=== PATIENT | female | born 1940 | race Caucasian/White ===

== ENCOUNTER 2016-08-31 17:04 | Outpatient (CLI) | payer MEDICARE ==
[2016-08-31 17:44] LABS: ALT (SGPT) 20 U/L (8-55); AST (SGOT) 15 U/L (5-34); Albumin 3.8 g/dL (3.4-4.8); Alkaline Phosphatase 83 U/L (40-150); Anion Gap 16 mmol/L (10-20); BUN (Urea Nitrogen) 44 mg/dL (9.8-20.1); Bilirubin, Total 0.4 mg/dL (0.2-1.2); Calc. Creatinine Clearance 0 mL/min (70-130); Calcium 8.8 mg/dL (7.8-10.44); Carbon Dioxide 20 mmol/L (23-31); Chloride 102 mmol/L (98-107); Estimated GFR-MDRD 23; Globulin 2.2 g/dL (2.4-3.5); Glucose 439 mg/dL (83-110); Potassium 5.1 mmol/L (3.5-5.1); Sodium 133 mmol/L (136-145)
== END 2016-08-31 17:05 | disposition home or self-care (01) ==
LOC: NAV LAB 17:04
PROVIDERS: ATTEND Urology
DX: N28.89 Other specified disorders of kidney and ureter (principal)
CPT/HCPCS: 36415; 80053

== ENCOUNTER 2016-09-16 09:01 | Outpatient (CLI) | payer MEDICARE ==
[2016-09-16 10:00] LABS: #Basophils 0.1 thou/uL (0.0-0.2); #Eosinphils 0.1 thou/uL (0.0-0.7); #Lymphocytes 0.9 thou/uL (1.20-3.40); #Monocytes 0.4 thou/uL (0.11-0.59); %Basophils 1.1 % (0.0-1.0); %Eosinophils 1.6 % (0.0-10.0); %Lymphocytes 16.5 % (21.0-51.0); %Monocytes 7.1 % (0.0-10.0); %Neutrophils 73.6 % (42.0-75.0); Hemoglobin 8.5 g/dL (12.0-16.0); Mean Corpuscular HGB CONC 31.7 g/dL (32.0-36.0); Mean Corpuscular Hemoglobin 28.6 pg (27.0-31.0); Mean Corpuscular Volume 90.1 fl (81.0-99.0); Platelet Count 177 thou/uL (130-400); RBC Distribution Width 12.8 % (11.5-14.5); Red Blood Cell (RBC) Count 2.96 mill/uL (4.20-5.40); White Blood Cell (WBC) Count 5.4 thou/uL (4.8-10.8)
[2016-09-16 17:28] LABS: Hemoglobin A1c 7.9 % (4.0-6.0)
[2016-09-16 17:45] LABS: ALT (SGPT) 17 U/L (8-55); AST (SGOT) 19 U/L (5-34); Albumin 3.7 g/dL (3.4-4.8); Alkaline Phosphatase 59 U/L (40-150); Anion Gap 13 mmol/L (10-20); BUN (Urea Nitrogen) 32 mg/dL (9.8-20.1); Bilirubin, Total 0.6 mg/dL (0.2-1.2); Calc. Creatinine Clearance 0 mL/min (70-130); Calcium 8.6 mg/dL (7.8-10.44); Carbon Dioxide 23 mmol/L (23-31); Cardiac Risk 2.5 (Less than 4.5); Chloride 108 mmol/L (98-107); Cholesterol 147 mg/dl (< 200 Desired); Estimated GFR-MDRD 25; Globulin 1.8 g/dL (2.4-3.5); Glucose 62 mg/dL (83-110); HDL Cholesterol 59 mg/dL (>60 Neg Risk); LDL Cholesterol, Calculated 81 mg/dL; Potassium 5.3 mmol/L (3.5-5.1); Protein, Total 5.5 g/dL (6.0-8.3); Sodium 139 mmol/L (136-145); Triglycerides 37 mg/dL (Less than 150)
[2016-09-17 10:07] LABS: Follow-up Chemistry Comp? YES; Follow-up Result - Chemistry REPORT FAXED
== END 2016-09-16 09:02 | disposition home or self-care (01) ==
LOC: NAV LAB 09:01
PROVIDERS: ATTEND Physician Assistant Medical
DX: E11.9 Type 2 diabetes mellitus without complications (principal); I48.0 Paroxysmal atrial fibrillation; E78.2 Mixed hyperlipidemia
CPT/HCPCS: 36415; 80053; 80061; 83036; 85025

== ENCOUNTER 2017-02-22 11:44 | Outpatient (CLI) | payer MEDICARE ==
--- NOTE | 2017-02-22 13:38 | ULT ---
BILATERAL RENAL ULTRASOUND: Date: 02/22/17 COMPARISON: None. HISTORY: Renal mass. TECHNIQUE: Multiplanar Schaefer scale and color Doppler images are obtained in a renal ultrasound. FINDINGS: Small anechoic cysts are seen in both kidneys. The largest is seen in the right kidney measuring 1.4 cm in greatest dimension. The kidneys demonstrate increased cortical echogenicity without hydronephro sis or calculi and measure 8.5 and 8.9 cm in length on the right and left, respectively. No solid terrance al mass is identified. Limited visualization of the urinary bladder is unremarkable. IMPRESSION: 1. Bilateral renal cysts. 2. Increased echogenicity of the kidneys may be secondary to chronic medical renal disease. POS: REGINE
== END 2017-02-22 11:45 | disposition home or self-care (01) ==
LOC: NAV RAD 11:44
PROVIDERS: ATTEND Internal Medicine Nephrology
DX: N28.89 Other specified disorders of kidney and ureter (principal); N28.1 Cyst of kidney, acquired
CPT/HCPCS: 76770

== ENCOUNTER 2017-05-12 12:19 | Outpatient (CLI) | payer MEDICARE ==
--- NOTE | 2017-05-12 15:26 | RAD ---
LEFT HIP 2 VIEWS: HISTORY: Left hip pain. FINDINGS: There is mild joint space narrowing and moderate degree of osteophytosis. Femoral head contours main tained. No acute fracture or dislocation. Calcification overlies the arterial structures. IMPRESSION: 1. Mild osteoarthritic left hip. 2. Atherosclerosis. POS: REGINE
--- NOTE | 2017-05-12 15:27 | RAD ---
LUMBAR SPINE 3 VIEWS: HISTORY: Back pain. FINDINGS: There are 5 lumbar-type vertebrae. Pedicles are intact. Vertebral body height and alignment are juliano ntained. Osteophytosis is present throughout the vertebral bodies and facets. No acute fracture or dislocation. Prominent calcification overlies the arterial structures. Sacral alae are predominantl y obscured by bowel content. IMPRESSION: 1. Lumbar spondylosis. No evidence of compression fracture. 2. Atherosclerosis. POS: REGINE
== END 2017-05-12 12:20 | disposition home or self-care (01) ==
LOC: NAV RAD 12:19
PROVIDERS: ATTEND Internal Medicine Nephrology
DX: M16.12 Unilateral primary osteoarthritis, left hip (principal); M47.896 Other spondylosis, lumbar region; I70.0 Atherosclerosis of aorta
CPT/HCPCS: 72100

== ENCOUNTER 2021-07-03 12:04 | Emergency (ER) | payer MEDICARE ==
[2021-07-03] MEDS ORDERED: Sodium Chloride 0.9% 500 ML ONE (12:39)
[2021-07-03 13:17] LABS: #Lymphocytes 0.7 thou/uL (1.20-3.40); #Monocytes 0.5 thou/uL (0.11-0.59); #Neutrophils 2.4 thou/uL (1.40-6.50); %Basophils 0.7 % (0.0-1.0); %Eosinophils 0.9 % (0.0-10.0); %Lymphocytes 19.8 % (21.0-51.0); %Monocytes 12.6 % (0.0-10.0); Hemoglobin 9.9 g/dL (12.0-16.0); Mean Corpuscular HGB CONC 29.8 g/dL (32.0-36.0); Mean Corpuscular Hemoglobin 30.1 pg (27.0-31.0); Mean Platelet Volume 8.1 fL (7.4-10.4); Platelet Count 152 thou/uL (130-400); RBC Distribution Width 13.3 % (11.5-14.5); Red Blood Cell (RBC) Count 3.31 mill/uL (4.20-5.40); White Blood Cell (WBC) Count 3.7 thou/uL (4.8-10.8)
[2021-07-03 13:32] LABS: ALT (SGPT) 9 U/L (8-55); AST (SGOT) 15 U/L (5-34); Albumin 3.8 g/dL (3.4-4.8); Alkaline Phosphatase 33 U/L (40-110); Anion Gap 17 mmol/L (10-20); BUN (Urea Nitrogen) 29 mg/dL (9.8-20.1); Bilirubin, Total 0.8 mg/dL (0.2-1.2); Calc. Creatinine Clearance 0 mL/min (70-130); Calcium 9.1 mg/dL (7.8-10.44); Carbon Dioxide 29 mmol/L (23-31); Chloride 100 mmol/L (98-107); Globulin 2.1 g/dL (2.4-3.5); Glucose 152 mg/dL (83-110); Magnesium 1.5 mg/dL (1.6-2.6); Potassium 3.1 mmol/L (3.5-5.1); Protein, Total 5.9 g/dL (5.8-8.1); Sodium 143 mmol/L (136-145)
[2021-07-03 13:43] LABS: CKMB 1.2 ng/mL (0-6.6)
[2021-07-03] MEDS ORDERED: Potassium Chloride 20 MEQ TAB ONE (14:17)
[2021-07-03] MEDS ORDERED: Furosemide 40 MG/4 ML VIAL ONE (14:17)
[2021-07-03 15:21] LABS: SARS-CoV-2 NAA Rapid Test Not Detected (NotDetected)
== END 2021-07-03 16:17 | disposition short-term general hospital (02) ==
LOC: NAV ERS 12:04
DX: I11.0 Hypertensive heart disease with heart failure (principal); I50.9 Heart failure, unspecified; A08.4 Viral intestinal infection, unspecified; E87.6 Hypokalemia; N28.9 Disorder of kidney and ureter, unspecified; I48.91 Unspecified atrial fibrillation; E11.9 Type 2 diabetes mellitus without complications; K21.9 Gastro-esophageal reflux disease without esophagitis; E78.5 Hyperlipidemia, unspecified; Z20.822 Contact with and (suspected) exposure to COVID-19; Z79.01 Long term (current) use of anticoagulants; Z79.4 Long term (current) use of insulin; Z79.899 Other long term (current) drug therapy
CPT/HCPCS: 71045; 80053; 82553; 83605; 83735; 83880; 84484; 85025; 93005; 94760; 96361; 96374; J1940; J7030; U0002